=== PATIENT | female | born 1980 | race Caucasian/White ===

== ENCOUNTER 2018-04-19 13:36 | Day surgery (SDC) | payer BC ==
[~2018-04-19] VITALS: Ht 167.6 cm; Wt 86.4 kg
[2018-04-19 14:10] LABS: HEMATOCRIT 42.6 % (36.0-48.0); MCH 31.3 pg (26.0-34.0); MCHC 35.2 g/dL (31.0-37.0); MCV 88.8 fL (80.0-100.0); MEAN PLATELET VOLUME 11.7 fL (7.4-10.4); RBC 4.8 10x6/uL (4.00-5.40); RDW 12.8 % (11.5-14.5); WBC 7.5 10x3/uL (4.8-10.8)
[2018-04-19 14:27] VITALS: BP 129/84; Ht 167.6 cm; Wt 86.4 kg
[2018-04-19 15:20] LABS: HCG SERUM NEGATIVE (NEGATIVE)
--- NOTE | 2018-04-20 13:11 | OP ---
PATIENT NAME: GUS BRAND MEDICAL RECORD: [id number] :84 LOCATION:[facility] ADMISSION DATE: SURGEON: BARBRA SALAS MD DATE OF OPERATION: 04/19/2018 PROCEDURE: Colonoscopy with ileoscopy and biopsy. REFERRING PHYSICIAN: Dionisio Tian MD INDICATIONS: Ms. Brand is a delightful 37-year-old woman. She has a history of chronic nausea and lymphocytic colitis by colonoscopy in February 2010. She has been having intermittent hematochezia, alternating diarrhea and constipation symptoms. She presents for outpatient colonoscopy. PREMEDICATIONS: Total IV anesthesia (propofol 300 mg). INSTRUMENT: Olympus video colonoscope, pediatric. PROCEDURE AND FINDINGS: After informed consent, Ms. Brand was placed in left lateral decubitus position and sedated as per anesthesia. After achieving adequate level of sedation, digital rectal exam was performed that showed no external hemorrhoidal tags, fissures, or fistulas; normal sphincter tone; and no palpable rectal masses. Colonoscope was introduced per rectally and advanced to the cecum without difficulty. The cecum, IC valve, and appendiceal orifice were identified. The terminal ileum was intubated and the distal small bowel mucosa appeared normal without erythema or ulcers. As the colonoscope was withdrawn, careful inspection was made of the clarke of the colon. Overall mucosa had normal vascular and fold pattern. There was a minimal amount of proximal ascending colonic mucosal erythema and biopsies were taken from the ascending colon to rule out lymphocytic colitis. In the rectum, there was mild patchy erythema and rectal biopsies were obtained. Retroflexion in the rectum showed mild internal hemorrhoids. No active bleeding. A good prep was present. No immediate complications. Withdrawal time was 10 minutes. ASSESSMENT: 1. Minimal nonspecific colitis. Rule out microscopic colitis. 2. Normal-appearing terminal ileum. 3. Mild internal hemorrhoids, source of hematochezia. RECOMMENDATIONS: 1. Follow up histopathology. 2. Avoid nonsteroidal anti-inflammatory drugs. 3. Anucort HC suppositories one per rectum b.i.d. for 14 days. 4. Recommend screening colonoscopy at age 47. TRANSINT:[id number] Voice Confirmation ID: [id number] DOCUMENT ID: [id number] OPERATIVE REPORT [id number] GUS BRAND BARBRA SALAS MD at 1311 CC: DIONISIO TIAN MD [id number] DICTATION DATE: 04/19/18 1601 DISABILITY CASE MANAGER: 04/19/18 1832 [facility] [place] 04/19/18 [place] [id number] [facility] [place] [address]
== END 2018-04-19 17:10 | disposition home or self-care (01) ==
LOC: D.OPS 13:36
PROVIDERS: Anesthesiology
DX: K52.9 Noninfective gastroenteritis and colitis, unspecified (principal); K64.8 Other hemorrhoids; Z01.812 Encounter for preprocedural laboratory examination